=== PATIENT | female | born 1955 | race Caucasian/White ===

== ENCOUNTER 2017-03-15 12:26 | Observation (INO) | payer BC ==
[2017-03-15] MEDS ORDERED: Aspirin Low Dose CHEW TAB* 81 MG PO ONE (13:11)
[2017-03-15 13:19] LABS: Hematocrit 40 % (35-47); Hemoglobin 13.4 g/dl (12.0-16.0); Mean Corpuscular HGB Conc 34 g/dl (31-36); Mean Corpuscular Hemoglobin 29 pg (27-31); Mean Corpuscular Volume 87 fL (80-97); Mean Platelet Volume 8 um3 (7.4-10.4); Red Blood Count 4.56 10^6/ul (4.0-5.4); Red Cell Distribution Width 13 % (10.5-15); White Blood Count 5.8 10^3/ul (3.5-10.8)
[2017-03-15 13:30] LABS: Albumin 4.2 g/dL (3.2-5.2); Calcium 9.8 mg/dL (8.6-10.3); EGFR African American 97.1 (>60); EGFR Non-African American 75.5 (>60); Globulin 3.2 g/dL (2-4); Potassium 4.3 mmol/L (3.5-5.0); Total Bilirubin 0.6 mg/dL (0.2-1.0); Total Protein 7.4 g/dL (6.4-8.9)
[2017-03-15 13:33] LABS: Troponin I 0.01 ng/mL (<0.04)
--- NOTE | 2017-03-15 13:43 | RAD ---
INDICATION: Chest pain, shortness of breath, question CHF and pneumonia. Coronary artery disease with previous myocardial infarction. COMPARISON: None. TECHNIQUE: Dual energy PA and routine lateral views of the chest were obtained. REPORT: Elevated lung volumes and mild prominence of interstitial markings. No alveolar consolidation, focal pulmonary lesion, pleural effusion, pneumothorax. The heart, pulmonary vasculature, and mediastinal contours are unremarkable. Negative for free air beneath the diaphragm. IMPRESSION: Stigmata of probable chronic obstructive pulmonary disease. No acute cardiopulmonary process evident.
[2017-03-15 16:16] VITALS: BP 107/60
--- NOTE | 2017-03-15 20:52 | ED ---
I, Oh,Sotiara, scribed for Juanpablo Hatfield MD on 03/15/17 at 1326 . HPI Chest Pain - HPI Summary HPI Summary: This 62 y/o female presents to ED for acute, intermittent chest tightness since last night. Pain woke pt up while asleep and lasted about 10 minutes. Pain radiates to back and shoulder, but does not radiates to jaw. Negative SOB, nausea, BLE edema, or tenderness. Positive for diaphoresis. Exertion does not make pain worse. PMHx is significant for UT and CAD s/p stent placement in January 2014 at [place]. Pt is on daily ASA with last dose this morning and metoprolol. No recent stress test or echocardiogram. Stress test is coming up on April 10, 2017. FHx is positive for CAD to both sisters. Nonsmoker and nondrinker. Normal EKG reading was shared with pt. Plan of care involving bloodwork with cardiac enzyme, EKG, and possible admission for further workup was discussed with pt and family member present at bedside. They are agreeable to possible repeat trop at this moment. - History of Current Complaint Chief Complaint: EDChestPainROMI Time Seen by Provider: 03/15/17 12:51 Hx Obtained From: Patient, Family/Back Shoe Worker, Medical Records Onset/Duration: Started Hours Ago, Resolved Timing: Intermittent Pain Intensity: 0 Pain Scale Used: 0-10 Numeric Chest Pain Radiates: Yes Chest Pain Radiates To:: Back, Shoulder Character: Tightness Aggravating Factor(s): Nothing Alleviating Factor(s): Nothing Associated Signs and Symptoms: Positive: Chest Pain, Diaphoresis. Negative: Shortness of Breath, Fever, Nausea, Palpitations, Abdominal Pain, Calf Pain/ Swelling PMH/Surg Hx/FS Hx/Imm Hx Cardiovascular History: Reports: Hx Coronary Artery Disease - s/p stent placement, Hx Hypercholesterolemia, Hx Hypertension - Currently on Metoprolol, Hx Myocardial Infarction - in January 2014 Infectious Disease History: No Infectious Disease History: Denies: Traveled Outside the [place] in Last 30 Days - Family History Known Family History: Positive: Cardiac Disease - Positive for stents in both sisters - Social History Lives: With Family Alcohol Use: None Hx Substance Use: No Substance Use Type: Reports: None Hx Tobacco Use: No Smoking Status (MU): Never Smoked Tobacco Review of Systems Positive: Skin Diaphoresis. Negative: Fever Positive: Chest Pain - currently resolved. Negative: Palpitations Negative: Shortness Of Breath Negative: Nausea Negative: Edema, Other - BLE tendernes All Other Systems Reviewed And Are Negative: Yes Physical Exam - Summary Physical Exam Summary: The patient is well-nourished in no acute distress and in no acute pain. The skin is warm and dry and skin color reflects adequate perfusion. No diaphoresis. HEENT: The head is normocephalic and atraumatic. The pupils are equal and reactive. The conjunctivae are clear and without drainage. Nares are patent and without drainage. Mouth reveals moist mucous membranes and the throat is without erythema and exudate. The external ears are intact. The ear canals are patent and without drainage. The tympanic membranes are intact. Neck is supple with full range of motion and non-tender. There are no carotid bruits. There is no neck vein distension. Respiratory: Chest is non-tender. Lungs are clear to auscultation and breath sounds are symmetrical and equal. Cardiovascular: Hear is regular rate and rhythm. There is no murmur or rub auscultated. No reproducible tenderness at sternal area. There is no peripheral/ bipedal pitting edema and distal pulses are symmetrical and equal. Abdomen: The abdomen is obsese, soft and non-tender. There are normal bowel sounds heard in all four quadrants and there is no organomegaly palpated. Musculoskeletal: There is no back pain noted. Extremities are non-tender with full range of motion. There is good capillary refill. There is no peripheral edema or calf tenderness elicited. Negative paraspinal tenderness at T-spine. Neurological: Patient is alert and oriented to person, place and time. The patient has symmetrical motor strength in all four extremities. Cranial nerves are grossly intact. Deep tendon reflexes are symmetrical and equal in all four extremities. Psychiatric: The patient has an appropriate affect and does not exhibit any anxiety or depression. Triage Information Reviewed: Yes Vital Signs On Initial Exam: Initial Vitals Temp Pulse Resp BP Pulse Ox 96.4 F 71 20 141/95 100 03/15/17 12:28 03/15/17 12:28 03/15/17 12:28 03/15/17 12:28 03/15/17 12:28 Vital Signs Reviewed: Yes Diagnostics - Vital Signs Vital Signs Temp Pulse Resp BP Pulse Ox 03/15/17 12:31 97.4 F 92 20 141/95 100 03/15/17 12:28 96.4 F 71 20 141/95 100 - Laboratory Lab Results: Lab Results 03/15/17 03/15/17 03/15/17 Range/Units 12:50 12:50 12:50 WBC 5.8 (3.5-10.8) 10^3/ul RBC 4.56 (4.0-5.4) 10^6/ul Hgb 13.4 (12.0-16.0) g/dl Hct 40 (35-47) % MCV 87 (80-97) fL MCH 29 (27-31) pg MCHC 34 (31-36) g/dl RDW 13 (10.5-15) % Plt Count 286 (150-450) 10^3/ul MPV 8 (7.4-10.4) um3 Neut % (Auto) 65.9 (38-83) % Lymph % (Auto) 24.4 L (25-47) % Traverse % (Auto) 6.6 (1-9) % Eos % (Auto) 1.8 (0-6) % Baso % (Auto) 1.3 (0-2) % Absolute Neuts (auto) 3.8 (1.5-7.7) 10^3/ul Absolute Lymphs (auto) 1.4 (1.0-4.8) 10^3/ul Absolute Monos (auto) 0.4 (0-0.8) 10^3/ul Absolute Eos (auto) 0.1 (0-0.6) 10^3/ul Absolute Basos (auto) 0.1 (0-0.2) 10^3/ul Absolute Nucleated RBC 0 10^3/ul Nucleated RBC % 0 Sodium 138 (133-145) mmol/L Potassium 4.3 (3.5-5.0) mmol/L Chloride 101 (101-111) mmol/L Carbon Dioxide 27 (22-32) mmol/L Anion Gap 10 (2-11) mmol/L BUN 10 (6-24) mg/dL Creatinine 0.77 (0.51-0.95) mg/dL Est GFR ( Amer) 97.1 (>60) Est GFR (Non-Af Amer) 75.5 (>60) BUN/Creatinine Ratio 13.0 (8-20) Glucose 102 H (70-100) mg/dL Lactic Acid 1.0 (0.5-2.0) mmol/L Calcium 9.8 (8.6-10.3) mg/dL Total Bilirubin 0.60 (0.2-1.0) mg/dL AST 18 (13-39) U/L ALT 24 (7-52) U/L Alkaline Phosphatase 68 (34-104) U/L Troponin I 0.01 (<0.04) ng/mL B-Natriuretic Peptide ( - 100) pg/mL Total Protein 7.4 (6.4-8.9) g/dL Albumin 4.2 (3.2-5.2) g/dL Globulin 3.2 (2-4) g/dL Albumin/Globulin Ratio 1.3 (1-3) 04// Range/Units 12:50 WBC (3.5-10.8) 10^3/ul RBC (4.0-5.4) 10^6/ul Hgb (12.0-16.0) g/dl Hct (35-47) % MCV (80-97) fL MCH (27-31) pg MCHC (31-36) g/dl RDW (10.5-15) % Plt Count (150-450) 10^3/ul MPV (7.4-10.4) um3 Neut % (Auto) (38-83) % Lymph % (Auto) (25-47) % Traverse % (Auto) (1-9) % Eos % (Auto) (0-6) % Baso % (Auto) (0-2) % Absolute Neuts (auto) (1.5-7.7) 10^3/ul Absolute Lymphs (auto) (1.0-4.8) 10^3/ul Absolute Monos (auto) (0-0.8) 10^3/ul Absolute Eos (auto) (0-0.6) 10^3/ul Absolute Basos (auto) (0-0.2) 10^3/ul Absolute Nucleated RBC 10^3/ul Nucleated RBC % Sodium (133-145) mmol/L Potassium (3.5-5.0) mmol/L Chloride (101-111) mmol/L Carbon Dioxide (22-32) mmol/L Anion Gap (2-11) mmol/L BUN (6-24) mg/dL Creatinine (0.51-0.95) mg/dL Est GFR ( Amer) (>60) Est GFR (Non-Af Amer) (>60) BUN/Creatinine Ratio (8-20) Glucose (70-100) mg/dL Lactic Acid (0.5-2.0) mmol/L Calcium (8.6-10.3) mg/dL Total Bilirubin (0.2-1.0) mg/dL AST (13-39) U/L ALT (7-52) U/L Alkaline Phosphatase (34-104) U/L Troponin I (<0.04) ng/mL B-Natriuretic Peptide 44 ( - 100) pg/mL Total Protein (6.4-8.9) g/dL Albumin (3.2-5.2) g/dL Globulin (2-4) g/dL Albumin/Globulin Ratio (1-3) Result Diagrams: 03/15/17 12:50 03/15/17 12:50 Lab Statement: Any lab studies that have been ordered have been reviewed, and results considered in the medical decision making process. - Radiology CXR Xray Interpretation: No Acute Changes - Stigmata for COPD. No acute change. Radiology Interpretation Completed By: Radiologist - EKG 1233 Cardiac Rate: NL - 54 bpm EKG Rhythm: Sinus Bradycardia ST Segment: Normal EKG Interpretation: Poor R wave progression. No STEMI Re-Evaluation - Re-Evaluation First Eval Re-Evaluation Time: 14:07 Comment: Dr. Hatfield in room to share CXR imaging results and bloodwork results with trop of 0.01 with male family member present at bedside. He is still agreeable to repeat trop. Hard copy of the results are shared. Second Eval Re-Evaluation Time: 16:54 Comment: Dr. Hatfield in room to update pt on repeat troponin, which is negative. 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 Chest Pain Course/Dx - Course Assessment/Plan: This 62 y/o female presents to ED for acute, intermittent CP since last night that woke her up in sleep. PMHx is signficant for HLD, UT, and CAD s/p stent placement in January 2015 at [facility]. Pt states that pain is less severe than the pain she had while having UT. EKG is noted normal without STEMI and initial trop of 0.01 is noted in her bloodwork. MDCalc HEART score indicated moderate cardiac risk. Given the risk regarding FHx, PMHx, pt is admitted for further cardiac workup. Plan of care is discussed with present at bedside, and he is agreeable. Pt was seen by Hospitalist and refuses 3 hours troponin. Repeat trop, which is noted negative, is done and shared with pt and . They still refuse admission due to their consciousness to copay. - Chest Pain Differential Diagnosis/HQI/PQRI: Acute UT, ACS, CHF - Diagnoses Provider Diagnoses: Chest pain, History of coronary artery disease - Provider Notifications Discussed Care Of Patient With: Dr. Allen (Hospitalist) at 1421 PM Discharge - Discharge Plan Condition: Stable Disposition: HOME The documentation as recorded by the Josemanuel miranda Soohyun accurately reflects the service I personally performed and the decisions made by me, Juanpablo Hatfield MD.
== END 2017-03-15 14:22 | disposition left against medical advice (07) ==
LOC: ED 12:26 → MEDTELE 14:22
PROVIDERS: ADMIT Internal Medicine; ATTEND Internal Medicine
DX: R07.9 Chest pain, unspecified (principal); I25.10 Atherosclerotic heart disease of native coronary artery without angina pectoris; I10 Essential (primary) hypertension; Z95.5 Presence of coronary angioplasty implant and graft; E78.00 Pure hypercholesterolemia, unspecified; I25.2 Old myocardial infarction; R00.1 Bradycardia, unspecified
CPT/HCPCS: 36415; 71020; 80053; 83605; 83880; 84484; 85025; 93005; 99283; A9270-GY

== ENCOUNTER 2019-05-26 14:22 | Emergency (ER) | payer BC, MEDICARE ==
[2019-05-26 14:49] VITALS: BP 120/78
--- NOTE | 2019-05-26 15:27 | UC ---
Ear Complaint HPI - HPI Summary HPI Summary: 64 year old female otherwise in good health presents after losing the cotton portion of a Q-tip in her ear. Hearing intact. and daughter looked but were unable to find. no other complaints. no headache - History of Current Complaint Chief Complaint: UCEar Stated Complaint: RT EAR INJURY Time Seen by Provider: 05/26/19 14:58 Hx Obtained From: Patient ?: No Onset/Duration: Sudden Onset, Lasting Minutes Severity Currently: None Pain Intensity: 0 Pain Scale Used: 0-10 Numeric Associated Signs/Symptoms: Positive: Foreign Body Sensation. Negative: Discharge, Hearing Loss - Allergies/Home Medications Allergies/Adverse Reactions: Allergies Allergy/AdvReac Type Severity Reaction Status Date / Time No Known Allergies Allergy Verified 05/26/19 14:40 Home Medications: Home Medications Aspirin 1 tab PO DAILY 05/26/19 [History Confirmed 05/26/19] Atorvastatin* [Lipitor*] 40 mg PO 1700 05/26/19 [History Confirmed 05/26/19] Metoprolol Succinate [Kapspargo Sprinkle] 1 tab PO DAILY 05/26/19 [History Confirmed 05/26/19] PMH/Surg Hx/FS Hx/Imm Hx Previously Healthy: Yes - Surgical History Surgical History: Yes Surgery Procedure, Year, and Place: stents placed in her heart - Family History Known Family History: Positive: Cardiac Disease - Positive for stents in both sisters, Non-Contributory - Social History Alcohol Use: Rare Substance Use Type: None Smoking Status (MU): Never Smoked Tobacco Review of Systems All Other Systems Reviewed And Are Negative: Yes Constitutional: Positive: Negative ENT: Positive: Ear Ache Musculoskeletal: Positive: Negative Neurological: Positive: Negative Psychological: Positive: Negative Is Patient Immunocompromised?: No Physical Exam Triage Information Reviewed: Yes Appearance: Well-Appearing, No Pain Distress, Well-Nourished Vital Signs: Initial Vital Signs Temp 96.2 F 05/26/19 14:35 Pulse 62 05/26/19 14:35 Resp 18 05/26/19 14:35 BP 120/78 05/26/19 14:35 Pulse Ox 98 05/26/19 14:35 Vital Signs Reviewed: Yes Eyes: Positive: Conjunctiva Clear ENT: Positive: Normal ENT inspection, Hearing grossly normal, TMs normal, Other - RIght ear canal clear, TM intact, pearly, noted in 6 oclock position small scab without bleeding, appearing superficial, no other findings.. Negative: TM bulging, TM dull, TM red Neck: Positive: Supple Neurological Exam: Normal Psychological Exam: Normal Skin Exam: Normal Ear Complaint Course/Dx - Course Course Of Treatment: no FB seen in ear canal, however abrasion noted. LIkely Qtip was missing cotton portion and patient attempted to use in ear, injuring ear canal. - Differential Dx/Diagnosis Differential Diagnosis/HQI/PQRI: Foreign Body, Perforated TM, Pharyngitis Provider Diagnosis: Injury of ear canal Discharge - Sign-Out/Discharge Documenting (check all that apply): Patient Departure All imaging exams completed and their final reports reviewed: No Studies - Discharge Plan Condition: Good Disposition: HOME Patient Education Materials: Ear Foreign Body (ED) Referrals: No Primary Care Phys,NOPCP [Primary Care Provider] - Additional Instructions: - Able to visualize ear canal- no cotton seen, small abrasion on bottom of ear canal with scab formation. - Avoid putting anything in ear in future - Do not get water into ear for next 5 days to encourage healing, prevent infection - Billing Disposition and Condition Condition: GOOD Disposition: Home
== END 2019-05-26 15:30 | disposition home or self-care (01) ==
LOC: UCEAST 14:22
DX: S00.411A Abrasion of right ear, initial encounter (principal); X58.XXXA Exposure to other specified factors, initial encounter; Y93.E8 Activity, other personal hygiene; Y92.9 Unspecified place or not applicable
CPT/HCPCS: 99211; G0463